=== PATIENT | female | born 1940 | race Caucasian/White ===

== ENCOUNTER 2018-12-23 23:20 | Emergency (ER) | payer MEDICARE ==
[2018-12-23 23:47] VITALS: TEMP 97.7
[2018-12-24 01:14] LABS: Basophils % (A) 1 %; Eosinophils # (A) 0.1 k/uL (0-0.7); Eosinophils % (A) 1 %; HCT 39.5 % (34.0-46.0); HGB 12.8 gm/dL (11.4-16.0); Lymphocytes % (A) 28 %; MCH 29.4 pg (25.0-35.0); MCHC 32.4 g/dL (31.0-37.0); MCV 90.7 fL (80.0-100.0); Mean Platelet Volume 6.8; Monocytes # (A) 0.4 k/uL (0-1.0); Monocytes % (A) 5 %; Neutrophils # (A) 4.4 k/uL (1.3-7.7); Neutrophils % (A) 62 %; Platelet Count 229 k/uL (150-450); RBC 4.35 m/uL (3.80-5.40); RDW 14.4 % (11.5-15.5)
[2018-12-24 01:18] LABS: ALT 47 U/L (9-52); AST 26 U/L (14-36); African American GFR (CKD) >90 (>60 ml/min/1.73 sqM); Albumin 3.7 g/dL (3.5-5.0); Alkaline Phosphatase 63 U/L (38-126); Anion Gap 7 mmol/L; Blood Urea Nitrogen 27 mg/dL (7-17); Calcium 8.9 mg/dL (8.4-10.2); Carbon Dioxide 26 mmol/L (22-30); Chloride 107 mmol/L (98-107); Glucose 86 mg/dL (74-99); Potassium 4.1 mmol/L (3.5-5.1); Sodium 140 mmol/L (137-145); Total Bilirubin 0.6 mg/dL (0.2-1.3); Total Protein 6.1 g/dL (6.3-8.2)
--- NOTE | 2018-12-24 01:26 | ED ---
General Adult HPI - General Chief complaint: Recheck/Abnormal Lab/Rx Stated complaint: High BP Time Seen by Provider: 12/24/18 00:05 Source: patient Mode of arrival: ambulatory Limitations: no limitations - History of Present Illness Initial comments: This patient is a 78-year-old woman with history of hypertension and anxiety, who presents with complaint that her blood pressure was elevated most of the evening. The patient states that she is visiting family in town and that she usually resides in [place]. She states that they had all gone shopping today and after getting back into the car she was feeling anxious, tremulous, and little short of breath. Patient states that when she return to their home she checked her blood pressure Was in the 190s. -: hour(s) Consistency: now resolved Improves with: none Worsens with: none - Related Data Allergies Allergy/AdvReac Type Severity Reaction Status Date / Time Sulfa (Sulfonamide Allergy Unknown Verified 12/23/18 23:47 Antibiotics) tramadol AdvReac Unknown Verified 12/23/18 23:47 Review of Systems ROS Statement: Those systems with pertinent positive or pertinent negative responses have been documented in the HPI. ROS Other: All systems not noted in ROS Statement are negative. Constitutional: Denies: fever, weakness Eyes: Denies: vision change Respiratory: Denies: cough, dyspnea, wheezes Cardiovascular: Denies: chest pain, palpitations, orthopnea, edema, syncope Gastrointestinal: Denies: abdominal pain, vomiting, diarrhea Musculoskeletal: Denies: back pain Neurological: Denies: headache Psychiatric: Reports: anxiety Past Medical History Past Medical History: Hypertension, Myocardial Infarction ([place]) History of Any Multi-Drug Resistant Organisms: None Reported Past Surgical History: Adenoidectomy, Orthopedic Surgery, Tonsillectomy Additional Past Surgical History / Comment(s): right below knee amputation Past Psychological History: Anxiety Smoking Status: Never smoker Past Alcohol Use History: Rare Past Drug Use History: None Reported General Exam Limitations: no limitations General appearance: alert, in no apparent distress Head exam: Present: atraumatic, normocephalic Respiratory exam: Present: normal lung sounds bilaterally. Absent: respiratory distress, wheezes, rales, rhonchi, stridor Cardiovascular Exam: Present: regular rate, normal rhythm, normal heart sounds. Absent: systolic murmur, diastolic murmur, rubs, gallop GI/Abdominal exam: Present: soft. Absent: distended, tenderness, guarding, rebound, rigid, mass Neurological exam: Present: alert Skin exam: Present: warm, dry, intact, normal color. Absent: rash Course Vital Signs 12/23/18 12/24/18 23:42 01:30 Temperature 97.7 F Pulse Rate 72 60 Respiratory 18 16 Rate Blood Pressure 112/74 122/63 O2 Sat by Pulse 96 98 Oximetry Medical Decision Making - Lab Data Result diagrams: 12/24/18 00:00 12/24/18 00:00 Lab Results 12/24/18 12/24/18 12/24/18 Range/Units 00:00 00:00 00:00 WBC 7.0 (3.8-10.6) k/uL RBC 4.35 (3.80-5.40) m/uL Hgb 12.8 (11.4-16.0) gm/dL Hct 39.5 (34.0-46.0) % MCV 90.7 (80.0-100.0) fL MCH 29.4 (25.0-35.0) pg MCHC 32.4 (31.0-37.0) g/dL RDW 14.4 (11.5-15.5) % Plt Count 229 (150-450) k/uL Neutrophils % 62 % Lymphocytes % 28 % Monocytes % 5 % Eosinophils % 1 % Basophils % 1 % Neutrophils # 4.4 (1.3-7.7) k/uL Lymphocytes # 2.0 (1.0-4.8) k/uL Monocytes # 0.4 (0-1.0) k/uL Eosinophils # 0.1 (0-0.7) k/uL Basophils # 0.0 (0-0.2) k/uL Sodium 140 (137-145) mmol/L Potassium 4.1 (3.5-5.1) mmol/L Chloride 107 (98-107) mmol/L Carbon Dioxide 26 (22-30) mmol/L Anion Gap 7 mmol/L BUN 27 H (7-17) mg/dL Creatinine 0.68 (0.52-1.04) mg/dL Est GFR (CKD-EPI)AfAm >90 (>60 ml/min/1.73 sqM) Est GFR (CKD-EPI)NonAf 85 (>60 ml/min/1.73 sqM) Glucose 86 (74-99) mg/dL Calcium 8.9 (8.4-10.2) mg/dL Total Bilirubin 0.6 (0.2-1.3) mg/dL AST 26 (14-36) U/L ALT 47 (9-52) U/L Alkaline Phosphatase 63 (38-126) U/L Troponin I 0.013 (0.000-0.034) ng/mL Total Protein 6.1 L (6.3-8.2) g/dL Albumin 3.7 (3.5-5.0) g/dL Disposition Clinical Impression: Hypertension, Anxiety Disposition: HOME SELF-CARE Condition: Good Instructions (If sedation given, give patient instructions): Hypertension (ED), Anxiety (ED) Is patient prescribed a controlled substance at d/c from ED?: No Referrals: Nonstaff,Physician [Primary Care Provider] - 1-2 days
[2018-12-24 01:44] VITALS: BP 122/63; PULSE 60; RESP 16
== END 2018-12-24 02:03 | disposition home or self-care (01) ==
LOC: EC 23:20
DX: I10 Essential (primary) hypertension (principal); F41.9 Anxiety disorder, unspecified; I25.2 Old myocardial infarction; Z88.2 Allergy status to sulfonamides; Z88.5 Allergy status to narcotic agent
CPT/HCPCS: 36415; 80053; 84484; 85025; 99283

== ENCOUNTER 2019-01-03 10:53 | Emergency (ER) | payer MEDICARE ==
[2019-01-03 11:15] VITALS: RESP 18
--- NOTE | 2019-01-03 11:40 | ED ---
General Adult HPI - General Chief complaint: Recheck/Abnormal Lab/Rx Stated complaint: HTN Time Seen by Provider: 01/03/19 11:14 Source: patient Mode of arrival: EMS - History of Present Illness Initial comments: The patient is a 78-year-old female with a history of hypertension and presents with a chief complaint of high blood pressure. The patient states that she is visiting from [place]. Her regular doctor prescribed her losartan and instructed her to take 1-1/2 tablets of losartan in the morning. The patient also uses clonidine as needed for adjustment of her blood pressure with a goal of a systolic blood pressure between 120 and 140. The patient has had recent adjustments in her medication including initiation of losartan. The patient came to the emergency department today because at home her blood pressure was 197 systolic. The patient did take clonidine prior to leaving her home. Without further intervention, her blood pressures currently in the 150s sy stolic. Patient denies any pain, headache, nausea or vomiting, chest pain or shortness of breath. - Related Data Home Medications Medication Instructions Recorded Confirmed Atorvastatin [Lipitor] 40 mg PO HS 01/03/19 01/03/19 Cephalexin [Keflex] 500 mg PO TID 01/03/19 01/03/19 Losartan Potassium [Cozaar] 37.5 - 50 mg PO DAILY 01/03/19 01/03/19 Vit C/E/Zn/Coppr/Lutein/Zeaxan 1 cap PO BID 01/03/19 01/03/19 [Preservision Areds 2 Softgel] cloNIDine HCL [Catapres] 0.05 - 0.1 mg PO DAILY 01/03/19 01/03/19 clonazePAM [KlonoPIN] 0.5 mg PO TID PRN 01/03/19 01/03/19 Allergies Allergy/AdvReac Type Severity Reaction Status Date / Time Sulfa (Sulfonamide Allergy Unknown Verified 01/03/19 11:09 Antibiotics) tramadol AdvReac Unknown Verified 01/03/19 11:09 Review of Systems ROS Statement: Those systems with pertinent positive or pertinent negative responses have been documented in the HPI. ROS Other: All systems not noted in ROS Statement are negative. Past Medical History Past Medical History: Hypertension, Myocardial Infarction ([place]) History of Any Multi-Drug Resistant Organisms: None Reported Past Surgical History: Adenoidectomy, Orthopedic Surgery, Tonsillectomy Additional Past Surgical History / Comment(s): right below knee amputation Past Psychological History: Anxiety Smoking Status: Never smoker Past Alcohol Use History: Rare Past Drug Use History: None Reported General Exam Limitations: no limitations General appearance: alert, in no apparent distress Head exam: Present: atraumatic, normocephalic Eye exam: Present: normal appearance ENT exam: Present: normal exam Neck exam: Present: normal inspection Respiratory exam: Present: normal lung sounds bilaterally. Absent: respiratory distress, wheezes Cardiovascular Exam: Present: regular rate, normal rhythm GI/Abdominal exam: Present: soft. Absent: distended, tenderness Rectal exam: Present: deferred Extremities exam: Present: normal inspection Back exam: Present: normal inspection Neurological exam: Present: alert, oriented X3, CN II-XII intact Psychiatric exam: Present: normal affect, normal mood Skin exam: Present: warm, dry, intact Course Vital Signs 01/03/19 11:04 Temperature 98.4 F Pulse Rate 74 Respiratory 18 Rate Blood Pressure 158/96 O2 Sat by Pulse 98 Oximetry Medical Decision Making - Medical Decision Making Patient presents with a chief complaint of high blood pressure. On initial evaluation, vital signs are stable, blood pressure is 156/82. Patient is in no acute distress. She is alert and oriented, answers questions appropriately. I discussed with her that she should take her home medications as prescribed by her doctor, and weight at least 1.5 hours before checking her blood pressure so that her medications can get to affect. At this time, patient is asymptomatic, there is no need for further acute treatment. Patient was instructed to follow- up with her regular doctor, and return to the emergency department if she develops any symptoms that we discussed. At this time, patient stable for discharge. Return to the ED if symptoms worsen or change. Disposition Clinical Impression: Hypertension Disposition: HOME SELF-CARE Condition: Good Instructions (If sedation given, give patient instructions): Hypertension in the Older Adult (ED) Is patient prescribed a controlled substance at d/c from ED?: No Referrals: Nonstaff,Physician [Primary Care Provider] - 1-2 days
[2019-01-03 11:56] VITALS: BP 133/70; PULSE 69; TEMP 98.2
== END 2019-01-03 11:53 | disposition home or self-care (01) ==
LOC: EC 10:53
DX: I10 Essential (primary) hypertension (principal); I25.2 Old myocardial infarction; F41.9 Anxiety disorder, unspecified; Z88.2 Allergy status to sulfonamides; Z88.5 Allergy status to narcotic agent; Z79.899 Other long term (current) drug therapy
CPT/HCPCS: 99283